=== PATIENT | male | born 1995 | race Caucasian/White ===

== ENCOUNTER → 2024-04-29 15:59 | Outpatient (REF) | payer OTHER, SELFPAY | LOC: RAD 15:59 | PROVIDERS: ATTENDING PHYSICIAN Physician Assistant; FAMILY PHYSICIAN Family Medicine | DX: M25.511 Pain in right shoulder (principal); M25.552 Pain in left hip | CPT/HCPCS: 73030 ==

== ENCOUNTER → 2024-06-04 16:56 | Outpatient (REF) | payer OTHER, SELFPAY | LOC: RAD 16:56 | PROVIDERS: ATTENDING PHYSICIAN Nurse Practitioner Family | DX: M54.50 Low back pain, unspecified (principal) | CPT/HCPCS: 72110 ==